=== PATIENT | female | born 1990 | race Caucasian/White ===

== ENCOUNTER 2016-08-17 17:37 | Emergency (ER) | payer MEDICAID ==
[2016-08-17] MEDS ORDERED: BUFFERED LIDOCAINE 10 ML SYRINGE ONE (18:20)
[2016-08-17] MEDS ORDERED: HYDROcod/ACETAM 5/325 MG TABLET PO STA (18:21)
[2016-08-17] MEDS ORDERED: AMOX/CLAV 875 MG/125 MG TABLET PO STA (18:21)
[2016-08-17] MEDS ORDERED: TETANUS/DIPHTHERIA/PERTUSSIS 0.5 ML SYRINGE IM ONE ×2 (18:21→18:55)
[2016-08-17] MEDS ORDERED: HYDROcod/ACETAM 5/325 MG TABLET ONE (18:54)
[2016-08-17] MEDS ORDERED: AMOX/CLAV 875 MG/125 MG TABLET PO ONE (18:56)
== END 2016-08-17 19:43 | disposition home or self-care (01) ==
DX: S61.452A Open bite of left hand, initial encounter (principal); S61.451A Open bite of right hand, initial encounter; W54.0XXA Bitten by dog, initial encounter; Y92.018 Other place in single-family (private) house as the place of occurrence of the external cause; R03.0 Elevated blood-pressure reading, without diagnosis of hypertension; Z23 Encounter for immunization
CPT/HCPCS: 73130; 90471; 90715; 99283; A9270

== ENCOUNTER 2016-08-20 13:41 | Emergency (ER) | payer MEDICAID ==
[2016-08-20] MEDS ORDERED: BUFFERED LIDOCAINE 10 ML SYRINGE ONE (13:45)
== END 2016-08-20 14:13 | disposition home or self-care (01) ==
DX: S61.452D Open bite of left hand, subsequent encounter (principal); S61.451D Open bite of right hand, subsequent encounter; W54.0XXD Bitten by dog, subsequent encounter

== ENCOUNTER 2022-07-20 00:58 | Outpatient (CLI) | payer SELFPAY | END 2022-07-20 00:59 | disposition left against medical advice (07) | LOC: EMS 00:58 | DX: R56.9 Unspecified convulsions (principal) ==

== ENCOUNTER 2022-07-21 10:15 | Emergency (ER) | payer MEDICAID ==
[2022-07-21] MEDS ORDERED: SODIUM CHLORIDE 0.9% 1,000 ML IV STA (11:24)
--- NOTE | 2022-07-21 11:28 | ED Physician Documentation ---
PD HPI SEIZURE - Stated complaint Stated Complaint: SZ - Chief complaint Chief Complaint: Neuro - History obtained from History obtained from: Patient, Family - History of Present Illness Timing - onset: How many days ago (2) Witnessed: Witnessed Number of seizures: Multiple, Recovered between seizure Description of seizure activity: Generalized Injury during seizure: Fell, Other (lip contusion) Associated symptoms: Nausea / vomiting History of seizures: First seizure Contributing factors: Other (has URI) Similar symptoms before: Has not had sx before Recently seen: Not recently seen - Additional information Additional information: Previously well Yady Candelario, is 32 years old and she reports that she had a seizure 2 days ago that was witnessed by her . He indicates that she had flexion-extension with her eyes rolled back and no recollection of the event that lasted 2 to 3 minutes. The patient has had a second seizure and has fallen and hit her face. She does not remember the second seizure the second seizure was not witnessed. The patient does have a history of alcohol consumption and indicates that she had her last drink 1-1/2 weeks ago. I question the patient specifically about the total amount of alcohol she drinks and her last drink. She is making it difficult to make a case for alcohol withdrawal seizure. She has been ill recently with a URI and continues to have a cough. She is not bringing up phlegm. She also has cyclical vomiting which she has had for about the past year and a half. She does not use cannabis. When she has her vomiting it usually last for about 1 day. She has had vomiting associated with this episode as well. She does not have headache. Review of Systems Constitutional: denies: Fever Eyes: denies: Decreased vision Ears: denies: Ear pain Nose: reports: Rhinorrhea / runny nose, Congestion Throat: denies: Sore throat Cardiac: denies: Chest pain / pressure, Palpitations, Pedal edema, Calf pain Respiratory: reports: Dyspnea, Cough GI: reports: Nausea, Vomiting, Diarrhea. denies: Abdominal Pain : denies: Dysuria, Frequency Skin: denies: Rash Musculoskeletal: denies: Neck pain, Back pain, Extremity pain Neurologic: reports: Seizure, Head injury, LOC. denies: Generalized weakness, Focal weakness, Numbness, Difficulty speaking, Confused, Altered mental status, Headache PD PAST MEDICAL HISTORY - Past Medical History Neuro: None - Past Surgical History Past Surgical History: No - Present Medications Home Medications: Ambulatory Orders Medication Instructions Recorded Confirmed Levetiracetam [Keppra] 500 mg PO BID #40 tablet 07/21/22 - Allergies Allergies/Adverse Reactions: Allergies Allergy/AdvReac Type Severity Reaction Status Date / Time No Known Drug Allergies Allergy Verified 08/20/16 13:50 - Social History Does the pt smoke?: No Smoking Status: Never smoker Does the pt drink ETOH?: Yes Does the pt have substance abuse?: No - Immunizations Immunizations are current?: No Immunizations: TDAP >10years/unknown - POLST Patient has POLST: No PD ED PE NORMAL - Vitals Vital signs reviewed: Yes (hypertensive ) - General General: Alert and oriented X 3, No acute distress, Well developed/nourished - HEENT HEENT: PERRL, EOMI, Other (There is swelling to the left lower lip consistent with a contusion. She has a piercing through this. 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, No motor deficit, No sensory deficit, Normal speech Eye Opening: Spontaneous Motor: Obeys Commands Verbal: Oriented GCS Score: 15 - Psych Psych: Normal mood, Normal affect Results - Vitals Vitals: Vital Signs - 24 hr 07/21/22 07/21/22 07/21/22 10:21 12:45 14:47 Temperature 36.4 C L Heart Rate 93 104 H 98 Respiratory 18 20 20 Rate Blood Pressure 124/90 H 127/94 H 122/104 H O2 Saturation 100 94 98 Oxygen O2 Source Room air - Labs Labs: Laboratory Tests 07/21/22 07/21/22 07/21/22 10:49 10:49 12:42 WBC 7.2 RBC 3.95 L Hgb 13.0 Hct 37.4 MCV 94.7 MCH 32.9 H MCHC 34.8 RDW 13.8 Plt Count 216 MPV 9.7 Neut # (Auto) 5.8 Lymph # (Auto) 1.0 L Moffat # (Auto) 0.3 Eos # (Auto) 0.0 Baso # (Auto) 0.0 Absolute Nucleated RBC 0.00 Nucleated RBC % 0.0 Sodium 135 Potassium 2.4 L* Chloride 92 L Carbon Dioxide 29 Anion Gap 14.0 H BUN 5 L Creatinine 0.6 Estimated GFR (MDRD) 117 Glucose 100 Calcium 8.5 Total Bilirubin 2.0 H AST 155 H ALT 85 H Alkaline Phosphatase 99 Total Protein 8.2 Albumin 4.5 Globulin 3.7 Albumin/Globulin Ratio 1.2 Lipase 35 Urine Color DARK YELLOW Urine Clarity CLEAR Urine pH 7.0 Ur Specific [place] <=1.005 Urine Protein NEGATIVE Urine Glucose (UA) NEGATIVE Urine Ketones NEGATIVE Urine Occult Blood TRACE-INTA Urine Nitrite POSITIVE H Urine Bilirubin NEGATIVE Urine Urobilinogen 1 (NORMAL) Ur Leukocyte Esterase SMALL H Urine RBC 0-5 Urine WBC 6-10 H Ur Squamous Epith Cells FEW Squamous Urine Bacteria Many H Ur Microscopic Review INDICATED Urine Culture Comments INDICATED Urine Opiates Screen NEGATIVE Ur Oxycodone Screen NEGATIVE Urine Methadone Screen NEGATIVE Ur Propoxyphene Screen NEGATIVE Ur Barbiturates Screen NEGATIVE Ur Tricyclics Screen NEGATIVE Ur Phencyclidine Scrn NEGATIVE Ur Amphetamine Screen NEGATIVE U Methamphetamines Scrn NEGATIVE U Benzodiazepines Scrn NEGATIVE Urine Cocaine Screen NEGATIVE U Cannabinoids Screen NEGATIVE Ethyl Alcohol < 5.0 - Rads (name of study) CT head Relevant Findings:: Prelim report reviewed (Impression: No CT evidence of acute intracranial process.), EMP independent interpretation of test chest Relevant Findings:: Prelim report reviewed (Impression: No acute cardiopulmonary disease.), EMP independent interpretation of test Procedures - IVC sono (time) 1120 Bedside IVC sono: IVC measures (cm) (0.92), IVC collapsed c insp (cm) (complete), Dehydration (est 1-2 liter deficit) PD Medical Decision Making - ED course Complexity details: reviewed old records, reviewed results, re-evaluated patient, considered differential, d/w patient, d/w family, d/w ux consultant (Dr. Jasso, neurology consultation, recommends treatment with keppra 1000mg loading and then 500bid. Repet seizure unusual recommends follow up with neurology. ) Reviewed Lab Results: We reviewed a complete blood count with normal hemoglobin hematocrit white blood cell count and platelets reviewed chemistries which showed a significantly low potassium at 2.4 it also showed bilirubin elevated at 2.0 and AST and ALT also elevated. Tox screen was negative and ethyl alcohol was less than 5 ED course: 32-year-old female with a report of seizure x2 in 2 days. She does have a history of alcohol consumption and I tried very hard to elicit a history that would make alcohol withdrawal seizure a possibility. The patient indicates that her last alcohol consumption was 10 days ago. I asked the patient's to leave and interrogated the patient further and she is stuck to her story. The patient has had both URI and gastroenteritis with vomiting and diarrhea and she is dehydrated. She was administered intravenous saline. A chest x-ray is obtained without evidence of infiltrate a CT scan of the head was obtained without abnormality. The patient has a family history of factor V Leiden but the patient herself has never been tested. I consulted neurology and spoke to Dr. Whatley.He recommended administration of Keppra 500 twice daily after loading dose of 1000. The patient is agreeing to start this medication and to follow- up. I have given the patient a follow-up with [facility] primary care in [place] as well as with Dr. Mcdaniels neurology at [facility]. Departure - Departure Disposition: 01 Home, Self Care Clinical Impression: Seizure, Dehydration, Gastroenteritis URI (upper respiratory infection) Qualifiers: URI type: unspecified URI Qualified Code(s): J06.9 - Acute upper respiratory infection, unspecified Condition: Stable Instructions: ED Dehydration, ED Seizure New Onset Unk Cause, ED Gastroenteritis Viral Follow-Up: [facility] [place] [Provider Group] Madi Mcdaniels MD [Physician No Access] - Prescriptions: Levetiracetam [Keppra] 500 mg PO BID #40 tablet Comments: Medicine today it looks like you have had 2 seizures and we are not able to pin this down to alcohol withdrawal or some other specific entity. We did find today that you are dehydrated and you have a URI both of which appear to be resolving. The neurologist has recommended beginning Keppra 500 mg twice per day and I have E scribed this to the [facility] in [place]. My recommendation is to follow-up with the clinic in [place] before this medication runs out and to make arrangements for follow-up with neurology. In the meantime seizure precautions are indicated which means no driving no bathing alone no climbing on ladders or standing on roofs. Discharge Date/Time: 07/21/22 15:20
[2022-07-21 11:29] LABS: BASOPHILS % (AUTO) 0.3 %; EOSINOPHILS % (AUTO) 0.4 %; HCT - HEMATOCRIT 37.4 % (37.0-47.0); LYMPHOCYTES % (AUTO) 14.3 %; MEAN CORPUSCULAR HEMOGLOBIN 32.9 pg (27.0-31.0); MEAN CORPUSCULAR HGB CONC 34.8 g/dL (32.0-36.0); MEAN CORPUSCULAR VOLUME 94.7 fL (81.0-99.0); MEAN PLATELET VOLUME 9.7 fL (7.9-10.8); MONOCYTES # (AUTO) 0.3 10^3/uL (0.0-1.0); MONOCYTES % (AUTO) 3.9 %; NEUTROPHILS # (AUTO) 5.8 10^3/uL (1.5-6.6); NEUTROPHILS % (AUTO) 80.8 %; PLT - PLATELET COUNT 216 10^3/uL (130-450); RED BLOOD COUNT 3.95 10^6/uL (4.20-5.40); RED CELL DISTRIBUTION WIDTH 13.8 % (12.0-15.0); WHITE BLOOD COUNT 7.2 x10^3/uL (4.8-10.8)
[2022-07-21 11:42] LABS: ALBUMIN 4.5 g/dL (3.2-5.5); ALBUMIN/GLOBULIN RATIO 1.2 (1.0-2.2); ALKALINE PHOSPHATASE 99 IU/L (42-121); ALT ALANINE AMINOTRANSFERASE 85 IU/L (10-60); AST ASPARTATE AMINOTRANSFERASE 155 IU/L (10-42); BUN - BLOOD UREA NITROGEN 5 mg/dL (6-20); CALCIUM 8.5 mg/dL (8.5-10.3); CARBON DIOXIDE - CO2 29 mmol/L (21-32); CHLORIDE 92 mmol/L (101-111); CREATININE 0.6 mg/dL (0.4-1.0); ETOH - ETHANOL < 5.0 mg/dL; GFR - MDRD 117 (>89); GLUCOSE 100 mg/dL (70-100); LIPASE 35 U/L (22-51); SODIUM 135 mmol/L (135-145); TOTAL PROTEIN 8.2 g/dL (6.7-8.2)
[2022-07-21 11:43] LABS: POTASSIUM 2.4 mmol/L (3.5-5.0)
[2022-07-21] MEDS ORDERED: POTASSIUM CHLORIDE 20 MEQ TABLET PO STA (11:49)
[2022-07-21] MEDS ORDERED: POTASSIUM CHLOR 10 MEQ/100 ML 10 MEQ/100 ML BAG IV ONE (11:49)
[2022-07-21] MEDS ORDERED: MULTIVITAMIN TABLET PO STA (11:50)
[2022-07-21] MEDS ORDERED: THIAMINE INJ 100 MG in SODIUM CHLORIDE 0.9% 50 ML IV STA (11:50)
[2022-07-21] MEDS ORDERED: MAGNESIUM SULFATE 2 GRAM 2 GM/50 ML BAG IV ONE (11:50)
--- NOTE | 2022-07-21 12:02 | CT Report ---
PROCEDURE: HEAD WO INDICATIONS: seizure TECHNIQUE: Noncontrast 4.5 mm thick angled axial sections acquired from the foramen magnum to the vertex. For r adiation dose reduction, the following was used: automated exposure control, adjustment of mA and/or kV according to patient size. COMPARISON: None. FINDINGS: Image quality: Excellent. CSF spaces: Basal cisterns are patent. No extra-axial fluid collections. Ventricles are normal in size and shape. Brain: No midline shift. No intracranial masses or hemorrhage. Louie-white matter interface is norm al. Skull and face: Calvarium and visualized facial bones are intact, without suspicious lesions. Sinuses: Visualized sinuses and mastoids are clear. Hypoplastic frontal sinuses. IMPRESSION: No CT evidence of acute intracranial process. Reviewed by: Eva Gross MD on 07/21/2022 12:00 PM PDT Approved by: Eva Gross MD on 07/21/2022 12:00 PM PDT Station ID: [id number]
--- NOTE | 2022-07-21 12:27 | XRAY Report ---
PROCEDURE: Chest 1 View X-Ray INDICATIONS: cough TECHNIQUE: One view of the chest was acquired. COMPARISON: None. FINDINGS: Surgical changes and devices: None. Lungs and pleura: No pleural effusions or pneumothorax. Lungs are clear. Mediastinum: Mediastinal contours appear normal. Heart size is normal. Bones and chest wall: No suspicious bony lesions. Overlying soft tissues appear unremarkable. IMPRESSION: No acute cardiopulmonary disease. Reviewed by: Eva Gross MD on 07/21/2022 12:25 PM PDT Approved by: Eva Gross MD on 07/21/2022 12:25 PM PDT Station ID: [id number]
[2022-07-21 13:43] LABS: MUDS CUTOFF CONCENTRATIONS CUTOFF CONC BELOW:
[2022-07-21 13:45] LABS: BILIRUBIN,URINE NEGATIVE (NEGATIVE); GLUCOSE, URINE (UA) NEGATIVE (NEGATIVE); KETONES,URINE (UA) NEGATIVE (NEGATIVE); LEUKOCYTE ESTERASE, URINE SMALL (NEGATIVE); NITRITE,URINE POSITIVE (NEGATIVE); OCCULT BLOOD,URINE TRACE-INTA (NEGATIVE); PROTEIN,URINE NEGATIVE (NEGATIVE); UROBILINOGEN,URINE 1 (NORMAL) E.U./dL (NORMAL)
[2022-07-21 13:49] LABS: CLARITY,URINE CLEAR (CLEAR)
[2022-07-21 13:56] LABS: AMPHETAMINE SCREEN,URINE NEGATIVE (NEGATIVE); BACTERIA,URINE Many /HPF (None Seen); BARBITURATE SCREEN,UR NEGATIVE (NEGATIVE); BENZODIAZEPINES SCREEN, URINE NEGATIVE (NEGATIVE); COCAINE SCREEN URINE NEGATIVE (NEGATIVE); METHADONE SCREEN, URINE NEGATIVE (NEGATIVE); METHAMPHETAMINES SCREEN, URINE NEGATIVE (NEGATIVE); OPIATE SCREEN, URINE NEGATIVE (NEGATIVE); OXYCODONE SCREEN, URINE NEGATIVE (NEGATIVE); PROPOXYPHENE SCREEN, URINE NEGATIVE (NEGATIVE); RBC,URINE 0-5 /HPF (0-5); SQUAMOUS EPITHELIAL CELL,UR FEW Squamous (<= Few); THC CANNABINOID SCREEN, URINE NEGATIVE (NEGATIVE); TRICYCLIC ANTIDEPRESSANT,URINE NEGATIVE (NEGATIVE)
[2022-07-21] MEDS ORDERED: levETIRAcetam 500 MG/5 ML VIAL IVP STA (14:09)
[2022-07-21 14:48] VITALS: BP 122/104
== END 2022-07-21 15:20 | disposition home or self-care (01) ==
LOC: ED 10:15
DX: R56.9 Unspecified convulsions (principal); E86.0 Dehydration; K52.9 Noninfective gastroenteritis and colitis, unspecified; J06.9 Acute upper respiratory infection, unspecified
CPT/HCPCS: 36415; 70450; 71045; 80053; 80306; 80320; 81001; 83690; 85025; 87086; 87181; 96361; 96365; 96366; 96368; 96375; 99284; 99285; A9270; J3411; J7040; 81003

== ENCOUNTER 2022-08-24 15:41 | Outpatient (CLI) | payer MEDICAID ==
[~2022-08-24 15:41] MED LIST: GADOBUTROL 7.5 MMOL/7.5 ML VIAL ONE
--- NOTE | 2022-08-24 17:02 | MRI Report ---
PROCEDURE: BRAIN W/WO INDICATIONS: SEIZURES CONTRAST: gadavist 5.4ml TECHNIQUE: Noncontrast axial T1 spin echo, axial T2 fast spin echo, sagittal and axial FLAIR, coronal T2 fast sp in echo, axial gradient echo, axial diffusion and ADC through the brain. After the administration of contrast, axial and coronal T1 spin echo with fat saturation through the brain. COMPARISON: CT head 07/21/2022 FINDINGS: Image quality: Excellent. CSF spaces: Basal cisterns are patent. No extra-axial fluid collections. Ventricles are normal in size and shape. Brain: No midline shift. No intracranial bleeds or masses. No abnormal intracranial enhancement. There is cerebral volume loss for age. There is periventricular white matter chronic small vessel is chemic change. The brainstem appears normal. Diffusion-weighted images demonstrate no acute ischemi c insults. No chronic ischemic insults. Normal intravascular flow voids are present. Hippocampi ar e symmetrical without visualized abnormal signal, enhancement or mass lesion Skull and face: Calvarial marrow is normal in signal. Orbits appear normal. Sinuses: Sinuses and mastoids appear clear. IMPRESSION: 1. No acute intracranial process. Reviewed by: Ludy Lofton MD on 08/24/2022 5:00 PM PDT Approved by: Ludy Lofton MD on 08/24/2022 5:00 PM PDT Station ID: [id number]
[2022-08-24] MEDS ORDERED: GADOBUTROL 7.5 MMOL/7.5 ML VIAL IVP ONE (18:20)
== END 2022-08-24 15:42 | disposition home or self-care (01) ==
LOC: DI 15:41
PROVIDERS: ATTEND Physician Assistant
DX: R56.9 Unspecified convulsions (principal)
CPT/HCPCS: 70553; A9585

== ENCOUNTER 2023-09-30 12:30 | Emergency (ER) | payer MEDICAID ==
[2023-09-30 13:24] LABS: BASOPHILS % (AUTO) 0.1 %; LYMPHOCYTES # (AUTO) 1.9 10^3/uL (1.5-3.5); LYMPHOCYTES % (AUTO) 9.7 %; MEAN CORPUSCULAR HEMOGLOBIN 38.9 pg (27.0-31.0); MEAN CORPUSCULAR HGB CONC 30.1 g/dL (32.0-36.0); MEAN CORPUSCULAR VOLUME 129.2 fL (81.0-99.0); MEAN PLATELET VOLUME 8.9 fL (7.9-10.8); MONOCYTES # (AUTO) 0.9 10^3/uL (0.0-1.0); MONOCYTES % (AUTO) 4.5 %; NEUTROPHILS # (AUTO) 16.2 10^3/uL (1.5-6.6); NEUTROPHILS % (AUTO) 84.4 %; PLT - PLATELET COUNT 121 10^3/uL (130-450); RED BLOOD COUNT 1.13 10^6/uL (4.20-5.40); RED CELL DISTRIBUTION WIDTH 20.4 % (12.0-15.0); WHITE BLOOD COUNT 19.1 x10^3/uL (4.8-10.8)
[2023-09-30 13:26] LABS: HCT - HEMATOCRIT 14.6 % (37.0-47.0); HGB - HEMOGLOBIN 4.4 g/dL (12.0-16.0); SLIDE REVIEW? Indicated
[2023-09-30 13:36] LABS: PARTIAL THROMBOPLASTIN TIME 42.2 secs (24.9-33.3)
[2023-09-30 13:39] LABS: ACETAMINOPHEN 0.8 ug/mL; BILIRUBIN,DIRECT 4.76 mg/dL (0.03-0.18); ETOH - ETHANOL 46.3 mg/dL
[2023-09-30 13:41] LABS: INR 2.8 (0.8-1.2); PT - PROTHROMBIN TIME 28.6 secs (9.9-12.6)
[2023-09-30 13:47] LABS: ALBUMIN 2.5 g/dL (3.2-5.5); ALBUMIN/GLOBULIN RATIO 0.5 (1.0-2.2); BILIRUBIN,TOTAL 12.2 mg/dL (0.2-1.0); CALCIUM 9.5 mg/dL (8.5-10.3); CREATININE 0.5 mg/dL (0.6-1.3); POTASSIUM 3.5 mmol/L (3.5-4.5); TOTAL PROTEIN 7.2 g/dL (6.4-8.9)
--- NOTE | 2023-09-30 13:47 | XRAY Report ---
PROCEDURE: Chest 1V INDICATIONS: dyspnea, hypoxia TECHNIQUE: One view of the chest was acquired. COMPARISON: Chest radiograph 07/21/2022. FINDINGS: Surgical changes and devices: None. Lungs and pleura: Small left pleural effusion. Bilateral multifocal opacities. No pneumothorax. Mediastinum: Mediastinal contours appear normal. Heart size is normal. Bones and chest wall: No suspicious bony lesions. Overlying soft tissues appear unremarkable. IMPRESSION: Bilateral multifocal opacities concerning for pneumonia. Small left pleural effusion. Reviewed by: Eri Durán MD, PhD on 09/30/2023 12:46 PM KEILY Approved by: Eri Durán MD, PhD on 09/30/2023 12:46 PM KEILY Station ID: [id number]
[2023-09-30] MEDS: ALBUTEROL NEB 2.5 MG/3 ML INH STA ×2 (13:48→18:24)
[2023-09-30] MEDS: SODIUM CHLORIDE 0.9% 1,000 ML IV STA ×2 (13:52→20:11)
[2023-09-30 13:55] LABS: PLATELET ESTIMATE, MANUAL DECREASED (<130,000) (NORMAL); PLATELET MORPHOLOGY NORMAL APPEARANCE (NORMAL); WBC MORPHOLOGY (MULTIPLE) NORMAL APPEARANCE (NORMAL)
[2023-09-30] MEDS ORDERED: iohexoL-300 100 ML VIAL ONE (13:55)
[2023-09-30] MEDS: cefTRIAXone 1 GM VIAL IVP STA (13:56)
[2023-09-30 13:57] LABS: MAGNESIUM 1.6 mg/dL (1.7-2.3); PHOSPHORUS 2.8 mg/dL (2.5-5.0)
[2023-09-30 14:19] LABS: B. PARAPERTUSSIS- RESP PCR PAN NOT DETECTED; B. PERTUSSIS- RESP PCR PANEL NOT DETECTED; C. PNEUMONIAE- RESP PCR PANEL NOT DETECTED; CORONAVIRUS 229E-RESP PCR NOT DETECTED; CORONAVIRUS HKU1-RESP PCR NOT DETECTED; CORONAVIRUS NL63-RESP PCR NOT DETECTED; CORONAVIRUS OC43-RESP PCR NOT DETECTED; HUMAN METAPNEUMOVIRUS NOT DETECTED; INFLUENZA A- RESP PCR PANEL NOT DETECTED; INFLUENZA B - RESP PCR PANEL NOT DETECTED; M. PNEUMONIAE- RESP PCR PANEL NOT DETECTED; PARAINFLUENZA VIRUS 1 NOT DETECTED; PARAINFLUENZA VIRUS 2 NOT DETECTED; PARAINFLUENZA VIRUS 3 NOT DETECTED; PARAINFLUENZA VIRUS 4 NOT DETECTED; RHINOVIRUS/ENTEROVIRUS NOT DETECTED; RSV- RESP PCR PANEL NOT DETECTED; SARS-CoV-2 -RESP PCR PANEL NOT DETECTED
--- NOTE | 2023-09-30 14:59 | CT Report ---
PROCEDURE: Chest W INDICATIONS: diffuse infiltrates on cxr CONTRAST: 100ml omni 300 TECHNIQUE: After the administration of intravenous contrast, a CT scan of the chest was performed. Images were recorded and evaluated at appropriate window settings. Reformats: axial MIP of the chest, coronal and sagittal. For radiation dose reduction, the following was used: automated exposure control, adjustme nt of mA and/or kV according to patient size. COMPARISON: Chest radiograph 09/30/2023, 07/21/2022. FINDINGS: Image quality: Degraded by patient motion artifact. Chest wall and lower neck: No thyroid nodule which requires sonographic follow up. No breast mass. No axillary or supraclavicular adenopathy by size. Lungs and pleura: Bilateral multifocal areas of consolidation. Large left and small right pleural eff usions. No pneumothorax. Mediastinum: Heart size is normal. No pericardial effusion. No large vessel abnormality. No mediastin al adenopathy by size criteria. Bones: No aggressive osseous abnormality. Upper Abdomen: Separately dictated. IMPRESSION: Multifocal pneumonia. Large left and small right pleural effusions. Reviewed by: Eri Durán MD, PhD on 09/30/2023 1:58 PM KEILY Approved by: Eri Durán MD, PhD on 09/30/2023 1:58 PM KEILY Station ID: [id number]
--- NOTE | 2023-09-30 15:32 | ED Physician Documentation ---
History of Present Illness - Stated complaint Stated Complaint: SLURRED SPEECH,SOB,YELLOW - Chief complaint Chief Complaint: General - History obtained from History obtained from: Patient, Family - History of Present Illness Pain level max: 3 Pain level now: 3 - Additonal information Additional information: Patient is a 33-year-old female who presents to the emergency department with worsening symptoms for the past few weeks. She has had a cough, edema from her feet all the way up to her abdomen. Increasingly turning yellow. She has had decreased appetite over the past 4 to 5 days. No fevers are reported. 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 The patient states that she has not drank alcohol for 30 days. She denies any drug use. Does take Tylenol, approximately 500 mg daily. She did have elevated liver function test about a year ago with her primary care provider, she states that an ultrasound was ordered but never performed. Review of Systems Constitutional: denies: Fever : denies: Now EGA Skin: denies: Rash PD PAST MEDICAL HISTORY - Past Medical History Past Medical History: Yes Neuro: Seizure disorder Other Past Medical History: chronic nausea - Past Surgical History Past Surgical History: No - Present Medications Home Medications: Ambulatory Orders Medication Instructions Recorded Confirmed Levetiracetam [Keppra] 500 mg PO BID #40 tablet 07/21/22 09/30/23 Ondansetron [Ondansetron Odt] 4 mg PO Q6H 09/30/23 09/30/23 - Allergies Allergies/Adverse Reactions: Allergies Allergy/AdvReac Type Severity Reaction Status Date / Time No Known Drug Allergies Allergy Verified 09/30/23 12:46 - Social History Does the pt smoke?: Yes Smoking Status: Current every day smoker Does the pt drink ETOH?: No Does the pt have substance abuse?: No - Immunizations Immunizations are current?: No Immunizations: TDAP >10years/unknown - POLST Patient has POLST: No PD ED PE NORMAL - Vitals Vital signs reviewed: Yes - General General: Other (pursed lip breathing, jaundiced) - HEENT HEENT: Moist mucous membranes - Neck Neck: Supple, no meningeal sign - Cardiac Cardiac: Other (tachycardic) - Respiratory Respiratory: Other (tachypnea) - Abdomen Abdomen: Soft, Other (distended, soft) - Derm Derm: Warm and dry - Extremities Extremities: Other (generalized anasarca) - Neuro Neuro: Alert and oriented X 3 Results - Vitals Vitals: Vital Signs - 24 hr 09/30/23 09/30/23 09/30/23 12:35 13:00 13:54 Temperature 36.6 C Heart Rate 120 H 67 90 Heart Rate [ monitor] Respiratory 20 21 20 Rate Blood Pressure 121/66 126/88 H Blood Pressure [l arm] O2 Saturation 90 L 91 L If not protocol 10 : Oxygen Flow, liters/minute 09/30/23 09/30/23 09/30/23 14:00 14:21 15:00 Temperature Heart Rate 121 H 123 H 121 H Heart Rate [ monitor] Respiratory 32 H 27 H 31 H Rate Blood Pressure 114/70 136/71 H 119/74 Blood Pressure [l arm] O2 Saturation 86 L 90 L 90 L If not protocol 15 15 : Oxygen Flow, liters/minute 09/30/23 09/30/23 09/30/23 15:30 15:59 16:00 Temperature 36.4 C L Heart Rate 123 H 123 H Heart Rate [ 123 H monitor] Respiratory 31 H 29 H 34 H Rate Blood Pressure 95/69 116/68 Blood Pressure 116/68 [l arm] O2 Saturation 94 88 L 87 L If not protocol 15 15 : Oxygen Flow, liters/minute 09/30/23 09/30/23 09/30/23 16:21 16:30 16:36 Temperature 36.6 C Heart Rate 119 H 100 Heart Rate [ 121 H monitor] Respiratory 30 H 28 H Rate Blood Pressure 120/81 H Blood Pressure 114/96 H [l arm] O2 Saturation 82 L 92 If not protocol 13 : Oxygen Flow, liters/minute 09/30/23 09/30/23 09/30/23 16:50 17:00 17:30 Temperature Heart Rate 118 H 120 H 117 H Heart Rate [ monitor] Respiratory 26 H 28 H 26 H Rate Blood Pressure 118/76 135/88 H 104/69 Blood Pressure [l arm] O2 Saturation 94 92 88 L If not protocol : Oxygen Flow, liters/minute 09/30/23 09/30/23 09/30/23 17:58 18:00 18:19 Temperature 36.5 C 96.9 C H Heart Rate 112 H 112 H Heart Rate [ 119 H 118 H monitor] Respiratory 23 30 H 26 H Rate Blood Pressure 138/105 H Blood Pressure 113/92 H 182/90 H [l arm] O2 Saturation 91 L 89 L 89 L If not protocol : Oxygen Flow, liters/minute 09/30/23 09/30/23 09/30/23 18:30 18:32 18:49 Temperature 36.2 C L Heart Rate 117 H Heart Rate [ 115 H 116 H monitor] Respiratory 27 H 30 H 30 H Rate Blood Pressure 87/76 L Blood Pressure 105/65 99/56 L [l arm] O2 Saturation 87 L 85 L 90 L If not protocol : Oxygen Flow, liters/minute 09/30/23 09/30/23 09/30/23 19:00 19:11 19:21 Temperature Heart Rate 117 H 117 H 117 H Heart Rate [ monitor] Respiratory 32 H 32 H Rate Blood Pressure 99/63 101/54 L Blood Pressure [l arm] O2 Saturation 88 L 90 L If not protocol : Oxygen Flow, liters/minute 09/30/23 09/30/23 09/30/23 20:07 20:13 20:24 Temperature 37 C Heart Rate 115 H 121 H 120 H Heart Rate [ 112 H monitor] Respiratory 28 H 28 H 25 H Rate Blood Pressure 73/41 L 86/51 L 104/66 Blood Pressure 62/41 L [l arm] O2 Saturation 100 92 77 L If not protocol 15 15 : Oxygen Flow, liters/minute 09/30/23 09/30/23 20:35 20:40 Temperature Heart Rate 117 H 122 H Heart Rate [ monitor] Respiratory 30 H 20 Rate Blood Pressure 99/65 Blood Pressure [l arm] O2 Saturation 73 L 85 L If not protocol : Oxygen Flow, liters/minute Oxygen O2 Source Mechanical ventilator - Labs Labs: Microbiology 09/30/23 18:57 Body Fluid Culture - Preliminary Ascities Fluid Laboratory Tests 09/30/23 09/30/23 09/30/23 12:47 13:10 13:17 WBC 19.1 H RBC 1.13 L Hgb 4.4 L* Hct 14.6 L* MCV 129.2 H MCH 38.9 H MCHC 30.1 L RDW 20.4 H Plt Count 121 L MPV 8.9 Neut # (Auto) 16.2 H Lymph # (Auto) 1.9 Preston # (Auto) 0.9 Eos # (Auto) 0.0 Baso # (Auto) 0.0 Absolute Nucleated RBC 0.00 Nucleated RBC % 0.0 Manual Slide Review Indicated WBC Morphology NORMAL APPEARANCE Platelet Estimate DECREASED (<130,000) Platelet Morphology NORMAL APPEARANCE RBC Morph Micro Appear 3+ ANISOCYTOSIS PT INR APTT Bld Gas Analysis Time Sample Site ABG pH ABG pCO2 ABG pO2 ABG HCO3 ABG Total CO2 ABG O2 Saturation ABG Base Excess Misael Test O2 Delivery Device FiO2 EPAP IPAP Sodium Potassium Chloride Carbon Dioxide Anion Gap BUN Creatinine Estimated GFR (MDRD) Glucose POC Whole Bld Glucose Lactic Acid Calcium Phosphorus Magnesium Total Bilirubin Direct Bilirubin AST ALT Alkaline Phosphatase Ammonia Lactate Dehydrogenase Total Protein Albumin Globulin Albumin/Globulin Ratio Lipase Vitamin B12 Folate Urine Color Urine Clarity Urine pH Ur Specific [place] Urine Protein Urine Glucose (UA) Urine Ketones Urine Occult Blood Urine Nitrite Urine Bilirubin Urine Urobilinogen Ur Leukocyte Esterase Urine RBC Urine WBC Ur Squamous Epith Cells Urine Crystals Urine Bacteria Urine Casts Urine Mucus Ur Microscopic Review Urine Culture Comments Urine HCG, Qual Fluid Source Fluid Color Fluid Clarity Fluid WBC Fluid RBC Fluid Neutrophils % Fluid Lymphocytes % Fluid Macrophages % Fld Mesothelial Cell % Nasal Adenovirus (PCR) NOT DETECTED Nasal B. parapertussis DNA (PCR) NOT DETECTED Nasal Coronavir 229E PCR NOT DETECTED Nasal Coronavir HKU1 PCR NOT DETECTED Nasal Coronavir NL63 PCR NOT DETECTED Nasal Coronavir OC43 PCR NOT DETECTED Nasal Enterovir/Rhinovir PCR NOT DETECTED Nasal Influenza B PCR NOT DETECTED Nasal Influenza A PCR NOT DETECTED Nasal Parainfluen 1 PCR NOT DETECTED Nasal Parainfluen 2 PCR NOT DETECTED Nasal Parainfluen 3 PCR NOT DETECTED Nasal Parainfluen 4 PCR NOT DETECTED Nasal RSV (PCR) NOT DETECTED Nasal B.pertussis DNA PCR NOT DETECTED Nasal C.pneumoniae (PCR) NOT DETECTED [place] Human Metapneumo PCR NOT DETECTED Nasal M.pneumoniae (PCR) NOT DETECTED Nasal SARS-CoV-2 (PCR) NOT DETECTED Urine Opiates Screen Ur Buprenorphine Scrn Ur Oxycodone Screen Urine Methadone Screen Acetaminophen Ur Barbiturates Screen Ur Tricyclics Screen Ur Phencyclidine Scrn Ur Amphetamine Screen U Methamphetamines Scrn U Benzodiazepines Scrn Urine Cocaine Screen U Cannabinoids Screen Ur Drug Screen Comment Ethyl Alcohol Blood Type Blood Type Recheck A POSITIVE Antibody Screen REHANA, Polyspecific Crossmatch IS Only 09/30/23 09/30/2309/29/24 13:17 13:17 13:17 WBC RBC Hgb Hct MCV MCH MCHC RDW Plt Count MPV Neut # (Auto) Lymph # (Auto) Preston # (Auto) Eos # (Auto) Baso # (Auto) Absolute Nucleated RBC Nucleated RBC % Manual Slide Review WBC Morphology Platelet Estimate Platelet Morphology RBC Morph Micro Appear PT 28.6 H INR 2.8 H APTT 42.2 H Bld Gas Analysis Time Sample Site ABG pH ABG pCO2 ABG pO2 ABG HCO3 ABG Total CO2 ABG O2 Saturation ABG Base Excess Misael Test O2 Delivery Device FiO2 EPAP IPAP Sodium 128 L Potassium 3.5 Chloride 91 L Carbon Dioxide 13 L Anion Gap 24.0 H BUN 12 Creatinine 0.5 L Estimated GFR (MDRD) 143 Glucose 65 L POC Whole Bld Glucose Lactic Acid Calcium 9.5 Phosphorus Magnesium Total Bilirubin 12.2 H Direct Bilirubin 4.76 H AST 91 H ALT 20 Alkaline Phosphatase 101 Ammonia 16.2 L Lactate Dehydrogenase Total Protein 7.2 Albumin 2.5 L Globulin 4.7 H Albumin/Globulin Ratio 0.5 L Lipase 122 H Vitamin B12 Folate Urine Color Urine Clarity Urine pH Ur Specific [place] Urine Protein Urine Glucose (UA) Urine Ketones Urine Occult Blood Urine Nitrite Urine Bilirubin Urine Urobilinogen Ur Leukocyte Esterase Urine RBC Urine WBC Ur Squamous Epith Cells Urine Crystals Urine Bacteria Urine Casts Urine Mucus Ur Microscopic Review Urine Culture Comments Urine HCG, Qual Fluid Source Fluid Color Fluid Clarity Fluid WBC Fluid RBC Fluid Neutrophils % Fluid Lymphocytes % Fluid Macrophages % Fld Mesothelial Cell % Nasal Adenovirus (PCR) Nasal B. parapertussis DNA (PCR) Nasal Coronavir 229E PCR Nasal Coronavir HKU1 PCR Nasal Coronavir NL63 PCR Nasal Coronavir OC43 PCR Nasal Enterovir/Rhinovir PCR Nasal Influenza B PCR Nasal Influenza A PCR Nasal Parainfluen 1 PCR Nasal Parainfluen 2 PCR Nasal Parainfluen 3 PCR Nasal Parainfluen 4 PCR Nasal RSV (PCR) Nasal B.pertussis DNA PCR Nasal C.pneumoniae (PCR) [place] Human Metapneumo PCR Nasal M.pneumoniae (PCR) Nasal SARS-CoV-2 (PCR) Urine Opiates Screen Ur Buprenorphine Scrn Ur Oxycodone Screen Urine Methadone Screen Acetaminophen 0.8 Ur Barbiturates Screen Ur Tricyclics Screen Ur Phencyclidine Scrn Ur Amphetamine Screen U Methamphetamines Scrn U Benzodiazepines Scrn Urine Cocaine Screen U Cannabinoids Screen Ur Drug Screen Comment Ethyl Alcohol 46.3 Blood Type Blood Type Recheck Antibody Screen REHANA, Polyspecific Crossmatch IS Only 09/30/23 09/30/23 09/30/23 13:17 13:17 13:17 WBC RBC Hgb Hct MCV MCH MCHC RDW Plt Count MPV Neut # (Auto) Lymph # (Auto) Preston # (Auto) Eos # (Auto) Baso # (Auto) Absolute Nucleated RBC Nucleated RBC % Manual Slide Review WBC Morphology Platelet Estimate Platelet Morphology RBC Morph Micro Appear PT INR APTT Bld Gas Analysis Time Sample Site ABG pH ABG pCO2 ABG pO2 ABG HCO3 ABG Total CO2 ABG O2 Saturation ABG Base Excess Misael Test O2 Delivery Device FiO2 EPAP IPAP Sodium Potassium Chloride Carbon Dioxide Anion Gap BUN Creatinine Estimated GFR (MDRD) Glucose POC Whole Bld Glucose Lactic Acid Calcium Phosphorus 2.8 Magnesium 1.6 L Total Bilirubin Direct Bilirubin AST ALT Alkaline Phosphatase Ammonia Lactate Dehydrogenase 200 Total Protein Albumin Globulin Albumin/Globulin Ratio Lipase Vitamin B12 2342 H Folate 3.0 L Urine Color Urine Clarity Urine pH Ur Specific [place] Urine Protein Urine Glucose (UA) Urine Ketones Urine Occult Blood Urine Nitrite Urine Bilirubin Urine Urobilinogen Ur Leukocyte Esterase Urine RBC Urine WBC Ur Squamous Epith Cells Urine Crystals Urine Bacteria Urine Casts Urine Mucus Ur Microscopic Review Urine Culture Comments Urine HCG, Qual Fluid Source Fluid Color Fluid Clarity Fluid WBC Fluid RBC Fluid Neutrophils % Fluid Lymphocytes % Fluid Macrophages % Fld Mesothelial Cell % Nasal Adenovirus (PCR) Nasal B. parapertussis DNA (PCR) Nasal Coronavir 229E PCR Nasal Coronavir HKU1 PCR Nasal Coronavir NL63 PCR Nasal Coronavir OC43 PCR Nasal Enterovir/Rhinovir PCR Nasal Influenza B PCR Nasal Influenza A PCR Nasal Parainfluen 1 PCR Nasal Parainfluen 2 PCR Nasal Parainfluen 3 PCR Nasal Parainfluen 4 PCR Nasal RSV (PCR) Nasal B.pertussis DNA PCR Nasal C.pneumoniae (PCR) [place] Human Metapneumo PCR Nasal M.pneumoniae (PCR) Nasal SARS-CoV-2 (PCR) Urine Opiates Screen Ur Buprenorphine Scrn Ur Oxycodone Screen Urine Methadone Screen Acetaminophen Ur Barbiturates Screen Ur Tricyclics Screen Ur Phencyclidine Scrn Ur Amphetamine Screen U Methamphetamines Scrn U Benzodiazepines Scrn Urine Cocaine Screen U Cannabinoids Screen Ur Drug Screen Comment Ethyl Alcohol Blood Type Blood Type Recheck Antibody Screen REHANA, Polyspecific NEGATIVE Crossmatch IS Only 09/30/23 09/30/23 09/30/23 13:44 14:26 15:40 WBC RBC Hgb Hct MCV MCH MCHC RDW Plt Count MPV Neut # (Auto) Lymph # (Auto) Preston # (Auto) Eos # (Auto) Baso # (Auto) Absolute Nucleated RBC Nucleated RBC % Manual Slide Review WBC Morphology Platelet Estimate Platelet Morphology RBC Morph Micro Appear PT INR APTT Bld Gas Analysis Time Sample Site ABG pH ABG pCO2 ABG pO2 ABG HCO3 ABG Total CO2 ABG O2 Saturation ABG Base Excess Misael Test O2 Delivery Device FiO2 EPAP IPAP Sodium Potassium Chloride Carbon Dioxide Anion Gap BUN Creatinine Estimated GFR (MDRD) Glucose POC Whole Bld Glucose 64 L Lactic Acid 7.2 H* Calcium Phosphorus Magnesium Total Bilirubin Direct Bilirubin AST ALT Alkaline Phosphatase Ammonia Lactate Dehydrogenase Total Protein Albumin Globulin Albumin/Globulin Ratio Lipase Vitamin B12 Folate Urine Color Urine Clarity Urine pH Ur Specific [place] Urine Protein Urine Glucose (UA) Urine Ketones Urine Occult Blood Urine Nitrite Urine Bilirubin Urine Urobilinogen Ur Leukocyte Esterase Urine RBC Urine WBC Ur Squamous Epith Cells Urine Crystals Urine Bacteria Urine Casts Urine Mucus Ur Microscopic Review Urine Culture Comments Urine HCG, Qual Fluid Source Fluid Color Fluid Clarity Fluid WBC Fluid RBC Fluid Neutrophils % Fluid Lymphocytes % Fluid Macrophages % Fld Mesothelial Cell % Nasal Adenovirus (PCR) Nasal B. parapertussis DNA (PCR) Nasal Coronavir 229E PCR Nasal Coronavir HKU1 PCR Nasal Coronavir NL63 PCR Nasal Coronavir OC43 PCR Nasal Enterovir/Rhinovir PCR Nasal Influenza B PCR Nasal Influenza A PCR Nasal Parainfluen 1 PCR Nasal Parainfluen 2 PCR Nasal Parainfluen 3 PCR Nasal Parainfluen 4 PCR Nasal RSV (PCR) Nasal B.pertussis DNA PCR Nasal C.pneumoniae (PCR) [place] Human Metapneumo PCR Nasal M.pneumoniae (PCR) Nasal SARS-CoV-2 (PCR) Urine Opiates Screen Ur Buprenorphine Scrn Ur Oxycodone Screen Urine Methadone Screen Acetaminophen Ur Barbiturates Screen Ur Tricyclics Screen Ur Phencyclidine Scrn Ur Amphetamine Screen U Methamphetamines Scrn U Benzodiazepines Scrn Urine Cocaine Screen U Cannabinoids Screen Ur Drug Screen Comment Ethyl Alcohol Blood Type A POSITIVE Blood Type Recheck Antibody Screen NEGATIVE REHANA, Polyspecific Crossmatch IS Only See Detail 09/30/23 09/30/23 09/30/23 17:09 17:09 17:40 WBC RBC Hgb Hct MCV MCH MCHC RDW Plt Count MPV Neut # (Auto) Lymph # (Auto) Preston # (Auto) Eos # (Auto) Baso # (Auto) Absolute Nucleated RBC Nucleated RBC % Manual Slide Review WBC Morphology Platelet Estimate Platelet Morphology RBC Morph Micro Appear PT INR APTT Bld Gas Analysis Time 1751 Sample Site LEFT RADIAL ABG pH 7.21 L ABG pCO2 37 ABG pO2 67 L ABG HCO3 14.4 L ABG Total CO2 15.5 L ABG O2 Saturation 87 L* ABG Base Excess -12.4 L Misael Test POSITIVE O2 Delivery Device BiPAP FiO2 100.00 EPAP 5 IPAP 10 Sodium Potassium Chloride Carbon Dioxide Anion Gap BUN Creatinine Estimated GFR (MDRD) Glucose POC Whole Bld Glucose Lactic Acid Calcium Phosphorus Magnesium Total Bilirubin Direct Bilirubin AST ALT Alkaline Phosphatase Ammonia Lactate Dehydrogenase Total Protein Albumin Globulin Albumin/Globulin Ratio Lipase Vitamin B12 Folate Urine Color BROWN Urine Clarity HAZY Urine pH 5.5 Ur Specific [place] 1.010 Urine Protein NEGATIVE Urine Glucose (UA) NEGATIVE Urine Ketones 40 H Urine Occult Blood NEGATIVE Urine Nitrite POSITIVE H Urine Bilirubin LARGE H Urine Urobilinogen 4 H Ur Leukocyte Esterase NEGATIVE Urine RBC None Seen Urine WBC 0-3 Ur Squamous Epith Cells FEW Squamous Urine Crystals 3-5 Bilirubin Urine Bacteria Rare Urine Casts 0-2 Hyaline Casts Urine Mucus Few Strands Ur Microscopic Review INDICATED Urine Culture Comments INDICATED Urine HCG, Qual NEGATIVE Fluid Source Fluid Color Fluid Clarity Fluid WBC Fluid RBC Fluid Neutrophils % Fluid Lymphocytes % Fluid Macrophages % Fld Mesothelial Cell % Nasal Adenovirus (PCR) Nasal B. parapertussis DNA (PCR) Nasal Coronavir 229E PCR Nasal Coronavir HKU1 PCR Nasal Coronavir NL63 PCR Nasal Coronavir OC43 PCR Nasal Enterovir/Rhinovir PCR Nasal Influenza B PCR Nasal Influenza A PCR Nasal Parainfluen 1 PCR Nasal Parainfluen 2 PCR Nasal Parainfluen 3 PCR Nasal Parainfluen 4 PCR Nasal RSV (PCR) Nasal B.pertussis DNA PCR Nasal C.pneumoniae (PCR) [place] Human Metapneumo PCR Nasal M.pneumoniae (PCR) Nasal SARS-CoV-2 (PCR) Urine Opiates Screen NEGATIVE Ur Buprenorphine Scrn NEGATIVE Ur Oxycodone Screen NEGATIVE Urine Methadone Screen NEGATIVE Acetaminophen Ur Barbiturates Screen NEGATIVE Ur Tricyclics Screen NEGATIVE Ur Phencyclidine Scrn NEGATIVE Ur Amphetamine Screen NEGATIVE U Methamphetamines Scrn NEGATIVE U Benzodiazepines Scrn NEGATIVE Urine Cocaine Screen NEGATIVE U Cannabinoids Screen NEGATIVE Ur Drug Screen Comment CUTOFF CONC BELOW: Ethyl Alcohol Blood Type Blood Type Recheck Antibody Screen REHANA, Polyspecific Crossmatch IS Only 09/30/23 18:57 WBC RBC Hgb Hct MCV MCH MCHC RDW Plt Count MPV Neut # (Auto) Lymph # (Auto) Preston # (Auto) Eos # (Auto) Baso # (Auto) Absolute Nucleated RBC Nucleated RBC % Manual Slide Review WBC Morphology Platelet Estimate Platelet Morphology RBC Morph Micro Appear PT INR APTT Bld Gas Analysis Time Sample Site ABG pH ABG pCO2 ABG pO2 ABG HCO3 ABG Total CO2 ABG O2 Saturation ABG Base Excess Misael Test O2 Delivery Device FiO2 EPAP IPAP Sodium Potassium Chloride Carbon Dioxide Anion Gap BUN Creatinine Estimated GFR (MDRD) Glucose POC Whole Bld Glucose Lactic Acid Calcium Phosphorus Magnesium Total Bilirubin Direct Bilirubin AST ALT Alkaline Phosphatase Ammonia Lactate Dehydrogenase Total Protein Albumin Globulin Albumin/Globulin Ratio Lipase Vitamin B12 Folate Urine Color Urine Clarity Urine pH Ur Specific [place] Urine Protein Urine Glucose (UA) Urine Ketones Urine Occult Blood Urine Nitrite Urine Bilirubin Urine Urobilinogen Ur Leukocyte Esterase Urine RBC Urine WBC Ur Squamous Epith Cells Urine Crystals Urine Bacteria Urine Casts Urine Mucus Ur Microscopic Review Urine Culture Comments Urine HCG, Qual Fluid Source PERITONEAL Fluid Color YELLOW Fluid Clarity HAZY Fluid WBC 63 Fluid RBC 5000 Fluid Neutrophils % 48 Fluid Lymphocytes % 24 Fluid Macrophages % 20 Fld Mesothelial Cell % 8 Nasal Adenovirus (PCR) Nasal B. parapertussis DNA (PCR) Nasal Coronavir 229E PCR Nasal Coronavir HKU1 PCR Nasal Coronavir NL63 PCR Nasal Coronavir OC43 PCR Nasal Enterovir/Rhinovir PCR Nasal Influenza B PCR Nasal Influenza A PCR Nasal Parainfluen 1 PCR Nasal Parainfluen 2 PCR Nasal Parainfluen 3 PCR Nasal Parainfluen 4 PCR Nasal RSV (PCR) Nasal B.pertussis DNA PCR Nasal C.pneumoniae (PCR) [place] Human Metapneumo PCR Nasal M.pneumoniae (PCR) Nasal SARS-CoV-2 (PCR) Urine Opiates Screen Ur Buprenorphine Scrn Ur Oxycodone Screen Urine Methadone Screen Acetaminophen Ur Barbiturates Screen Ur Tricyclics Screen Ur Phencyclidine Scrn Ur Amphetamine Screen U Methamphetamines Scrn U Benzodiazepines Scrn Urine Cocaine Screen U Cannabinoids Screen Ur Drug Screen Comment Ethyl Alcohol Blood Type Blood Type Recheck Antibody Screen REHANA, Polyspecific Crossmatch IS Only - Rads (name of study) cxr Relevant Findings:: Final report received, See rad report ct chest Relevant Findings:: Final report received, See rad report ct abd/pelvis Relevant Findings:: Final report received, See rad report post intubation cxr Relevant Findings:: Final report received, See rad report post OG tube CXR Relevant Findings:: Final report received, See rad report Procedures - Intubation - Major Provider: Emergency physician Medications: Ketamine, Lidocaine (nebulized) Blade: Glidescope Tube: Size-enter number (7.5), Cuffed, Marked at lips-enter cm (23) Route: Oral Confirmation: Direct visualization, Bilateral breath sounds, End tidal CO2, Pulse ox, Chest xray Complications: No compications - Central Line - Major Central Line Preparation: Consent Obtained, Time out completed, Ultrasound used, Sterile prep and drape Central line location: Right Femoral Central line type: Triple lumen Central line aftercare: Chlorhexidine disc placed, Secured, Placement confirmed, No complications, Pt tolerated well - Paracentesis - Major Preparation: Consent obtained (mother), Ultrasound guidance, Sterile prep and drape, Local anesthesia Location: RLQ Technique: Z-tract, Catheter over needle Fluid: Sent for gram stain, Sent for culture, Sent for glucose, Sent for protein, Sent for LDH Aftercare: No complications, Dressing applied PD Medical Decision Making - ED course Complexity details: reviewed old records (clinic records), reviewed results, re- evaluated patient, considered differential, d/w patient, d/w family (updated mother throughout the ED stay), 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 Has significant hypoxia, down to 65% on room air at triage. Immediately placed on oxygen. She was a very difficult IV stick, IV initially placed a 20-gauge IV in her left antecubital fossa. Her chest x-ray shows diffuse infiltrates, consistent with pneumonia. White blood cell count 19,000. Given Rocephin and azithromycin. Has new onset ascites, abdomen is nontender. Has significant anasarca as well. Her hemoglobin is down to 4.4, type and screen was ordered. Blood was ordered. INR is 2.8. CT abd omen pelvis were attempted to be performed but the line blew during the CT scan, therefore they became noncontrast scans. Initially the patient refused a central line, after much discussion she con tinued to refuse a central line in her internal jugular. She did finally agreed to a central line in the groin. Therefore a femoral line was placed. Patient and mother were both counseled at length regarding infectious risk and that this is not the preferred spot for a central line, but as it was the only line she would allow me to place, I did place a central line in the right femoral area without complication. Calls were placed to surrounding larger facilities for urgent transfer. As of 4 PM, [facility]. Discussed the case with the hospitalist at [facility], Dr. Alvarez, concerned that the patient may need ICU rather than stepdown, they asked if he would try to obtain a hepatology consult from the [facility] as they do not have hepatology on the weekend. I then received a call back from [facility], spoke with Dr. Santos, ICU at [facility] who graciously accepts in transfer. We did discuss a paracentesis, patient does not want a paracentesis at this time. She is clinically stable on BiPAP. Patient continued to worsen in the emergency department before transfer, started to become more hypoxic and grunting. A nebulizer treatment was given along with Solu-Medrol. She became more drowsy. A paracentesis was then performed after consent with mother and 4 L of fluid were removed from the abdomen. Patient still had difficulty raising her oxygen saturations consistently to 90 despite BiPAP with 100% FiO2. At that point it was decided to intubate the patient for airway protection as she was becoming more drowsy as well. Given her lack of reserve, you chose to do a semiawake dissociated intubation. She was given nebulized lidocaine followed by IV ketamine. A glide scope was then used to pass the tube between the cords. There was a large amount of clear yellow fluid in her trachea. Rocuronium was then given as a paralytic as soon as the cords were passed. Patient was started on a Levophed drip as she was hypotensive and placed on a propofol drip for sedation when her systolic blood pressure was up to 100. Patient was then sent via helicopter to [facility]. COBRA forms completed. Prior to the patient leaving, I spoke with Viviana in the ICU at [facility] in [place] to update them on the patient's condition and procedures that had been performed in the emergency department. Later I did speak with Dr. Santos again, to update him on the paracentesis results. EXAM: [id number] CT/ABPEW ([id number]) PROCEDURE: Abdomen/Pelvis W INDICATIONS: jaundice, ascites CONTRAST: 100ml omni 300 TECHNIQUE: After the administration of intravenous contrast, a CT scan of the abdomen and pelvis was performed. Images were recorded and evaluated at appropriate window settings. Reformats: coronal and sagittal. For radiation dose reduction, the following was used: automated exposure control, adjustment of mA and/or kV according to patient size. COMPARISON: CT chest 09/30/2023. FINDINGS: Image quality: Artifact from external monitoring devices and patient motion artifact Lower chest: Please see separately dictated CT chest obtained concurrently same day 09/30/2023. Liver: No solid mass. Gallbladder: Limited evaluation of the gallbladder. Cholelithiasis. Biliary tree: No intrahepatic or extrahepatic dilation, accounting for age. Spleen: No splenomegaly. Pancreas: No pancreatic ductal dilation. Adrenals: No adrenal nodule. Kidneys and ureters: Nonobstructing left inferior pole punctate 4 mm calculus. No hydronephrosis. No renal cystic lesion which requires follow up. No solid mass. Stomach, bowel and peritoneum: No gastric or small bowel dilation. No abnormal wall thickening. Large volume abdominal pelvic ascites. Lymph nodes: No central or retroperitoneal adenopathy. Vessels: No infrarenal aortic aneurysm. Patent portal vein. PELVIS Reproductive organs: Unremarkable. Bladder: No abnormal wall thickening, accounting for underdistention. Pelvic lymph nodes: No pelvic adenopathy by size criteria. Bones: No aggressive osseous abnormality. Other: No significant ventral or inguinal hernia. Anasarca. IMPRESSION: Limited evaluation of the abdomen and pelvis. Large volume abdominopelvic ascites and anasarca. Cholelithiasis without definite evidence of acute cholecystitis. Nonobstructing 4 mm left inferior pole calculus. No hydronephrosis. PROCEDURE: Chest W INDICATIONS: diffuse infiltrates on cxr CONTRAST: 100ml omni 300 TECHNIQUE: After the administration of intravenous contrast, a CT scan of the chest was performed. Images were recorded and evaluated at appropriate window settings. Reformats: axial MIP of the chest, coronal and sagittal. For radiation dose reduction, the following was used: automated exposure control, adjustment of mA and/or kV according to patient size. COMPARISON: Chest radiograph 09/30/2023, 07/21/2022. FINDINGS: Image quality: Degraded by patient motion artifact. Chest wall and lower neck: No thyroid nodule which requires sonographic follow up. No breast mass. No axillary or supraclavicular adenopathy by size. Lungs and pleura: Bilateral multifocal areas of consolidation. Large left and small right pleural effusions. No pneumothorax. Mediastinum: Heart size is normal. No pericardial effusion. No large vessel abnormality. No mediastinal adenopathy by size criteria. Bones: No aggressive osseous abnormality. Upper Abdomen: Separately dictated. IMPRESSION: Multifocal pneumonia. Large left and small right pleural effusions. - Critical Care Time(min): 120 Time Includes: Direct patient care, Review records, Reassess patient, Document care, Coordinate care, See progress note Data interpretation: See progress note Procedures included in critical care time: See progress note Procedures excluded from critical care time: Central IV, Intubation, See progress note (paracentesis) Departure - Departure Disposition: [address] [facility] Clinical Impression: Jaundice, Hyperbilirubinemia, Coagulopathy, Hypoxia, Anasarca Liver failure Qualifiers: Liver failure chronicity: unspecified chronicity Hepatic coma status: without hepatic coma Qualified Code(s): K72.90 - Hepatic failure, unspecified without coma Pneumonia Qualifiers: Pneumonia type: due to unspecified organism Laterality: bilateral Lung location: unspecified part of lung Qualified Code(s): J18.9 - Pneumonia, unspecified organism Anemia Qualifiers: Anemia type: unspecified type Qualified Code(s): D64.9 - Anemia, unspecified Condition: Serious Forms: PCP List Discharge Date/Time: 09/30/23 20:00
[2023-09-30] MEDS: AZITHROMYCIN INJ 500 MG in SODIUM CHLORIDE 0.9% 250 ML IV STA (16:11)
[2023-09-30] MEDS: THIAMINE INJ 100 MG, MAGNESIUM SULFATE 2 GM, MULTIVITAMIN 10 ML, FOLIC ACID INJ 1 MG in... IV STA (16:11)
[2023-09-30] MEDS: ONDANSETRON 4 MG/2 ML VIAL IVP STA (16:36)
[2023-09-30] MEDS: LORazepam 2 MG/ML VIAL IVP STA (16:39)
[2023-09-30] MEDS: PANTOPRAZOLE 40 MG VIAL IVP STA (16:42)
[2023-09-30] MEDS: PHYTONADIONE 10 MG/ML AMP SUBQ STA (16:45)
[2023-09-30 17:25] LABS: BILIRUBIN,URINE LARGE (NEGATIVE); GLUCOSE, URINE (UA) NEGATIVE (NEGATIVE); KETONES,URINE (UA) 40 mg/dL (NEGATIVE); LEUKOCYTE ESTERASE, URINE NEGATIVE (NEGATIVE); NITRITE,URINE POSITIVE (NEGATIVE); OCCULT BLOOD,URINE NEGATIVE (NEGATIVE); PH,URINE 5.5 PH (5.0-7.5); PROTEIN,URINE NEGATIVE (NEGATIVE); UROBILINOGEN,URINE 4 E.U./dL (NORMAL)
[2023-09-30 17:26] LABS: HCG UR QUAL NEGATIVE
[2023-09-30 17:27] LABS: CLARITY,URINE HAZY (CLEAR)
[2023-09-30 17:35] LABS: AMPHETAMINE SCREEN,URINE NEGATIVE (NEGATIVE); BARBITURATE SCREEN,UR NEGATIVE (NEGATIVE); BENZODIAZEPINES SCREEN, URINE NEGATIVE (NEGATIVE); BUPRENORPHINE SCREEN, URINE NEGATIVE (NEGATIVE); COCAINE SCREEN URINE NEGATIVE (NEGATIVE); METHADONE SCREEN, URINE NEGATIVE (NEGATIVE); METHAMPHETAMINES SCREEN, URINE NEGATIVE (NEGATIVE); OPIATE SCREEN, URINE NEGATIVE (NEGATIVE); OXYCODONE SCREEN, URINE NEGATIVE (NEGATIVE); THC CANNABINOID SCREEN, URINE NEGATIVE (NEGATIVE); TRICYCLIC ANTIDEPRESSANT,URINE NEGATIVE (NEGATIVE)
[2023-09-30 17:43] LABS: RBC,URINE None Seen /HPF (0-5); SQUAMOUS EPITHELIAL CELL,UR FEW Squamous (<= Few); WBC,URINE 0-3 /HPF (0-5)
[2023-09-30 17:44] LABS: BACTERIA,URINE Rare /HPF (None Seen); CASTS, URINE 0-2 Hyaline Casts /LPF; CRYSTALS,URINE 3-5 Bilirubin /LPF; MUCUS,URINE Few Strands
[2023-09-30 17:52] LABS: ABG BASE EXCESS -12.4 mmol/L (-2.0-3.0); ABG HCO3 14.4 mmol/L (22.0-26.0); ABG PCO2 37 mmHg (34-45); ABG PH 7.21 (7.35-7.45); ABG PO2 67 mmHg (80-100); ABG TCO2 15.5 MMOL/L (21.0-29.0)
[2023-09-30 17:54] LABS: ABG OXYGEN SATURATION 87 % (94-98); ALLEN TEST POSITIVE
[2023-09-30] MEDS: IPRATROPIUM/ALBUTEROL 3 ML NEB INH STA (17:57)
[2023-09-30] MEDS: iohexoL-300 100 ML VIAL IVP ONE (18:07)
[2023-09-30] MEDS ORDERED: ALBUTEROL NEB 2.5 MG/3 ML INH ONE (18:15)
[2023-09-30] MEDS: MORPHINE 2 MG/ML CARPUJECT IVP STA (18:40)
[2023-09-30] MEDS: methylPREDNISolone SUCCINATE 125 MG/2 ML VIAL IVP STA (18:43)
[2023-09-30] MEDS: ALBUTEROL SULF 0.5% 20ML SOLUTION INH SCH (19:30)
[2023-09-30 19:45] LABS: CC,BF RBC 5000 /mm^3; CC,BF WBC 63 /mm^3
[2023-09-30] MEDS ORDERED: LIDOCAINE TOPICAL 4% 50 ML BOTTLE ONE (19:45)
[2023-09-30] MEDS ORDERED: NOREPINEPHRINE/0.9 % NS 8 MG/250 ML BAG IV ONE (19:46)
[2023-09-30 19:47] LABS: BF CLARITY HAZY; BF COLOR YELLOW; BF SOURCE PERITONEAL
[2023-09-30] MEDS: LIDOCAINE TOPICAL 4% 50 ML BOTTLE MM STA (19:49)
[2023-09-30] MEDS: KETAMINE 500 MG/10 ML VIAL IVP STA (19:56)
[2023-09-30] MEDS: ROCURONIUM 50 MG/5 ML VIAL IVP STA (20:04)
[2023-09-30] MEDS: NOREPINEPHRINE/0.9 % NS 8 MG/250 ML BAG IV STA (20:11)
[2023-09-30] MEDS: PROPOFOL 1000 MG/100 ML 1,000 MG/100 ML BOTTLE IV STA (20:18)
[2023-09-30 20:30] LABS: LYMPHOCYTES %,BODY FLUID 24 %; MACROPHAGES %,BODY FLUID 20 %; MESOTHELIAL %, BF 8 %; NEUTROPHILS %, BF 48 %
--- NOTE | 2023-09-30 20:40 | XRAY Report ---
PROCEDURE: Chest for Line Placement INDICATIONS: intubation TECHNIQUE: One view of the chest was acquired. COMPARISON: 09/30/2023 FINDINGS: Surgical changes and devices: Endotracheal tube tip 3.2 cm above the ayo Lungs and pleura: Dense bilateral perihilar infiltrates with relative peripheral clearing left Mediastinum: Mediastinal contours appear normal. Heart size is normal. Bones and chest wall: No suspicious bony lesions. Overlying soft tissues appear unremarkable. IMPRESSION: Endotracheal tube tip 3.2 cm above the ayo. Dense bilateral perihilar infiltrates have significantly increased from the prior exam, and most cons istent with pulmonary edema. Differential rapidly progressive pneumonia Reviewed by: Noah Antoine MD on 09/30/2023 7:39 PM AKDT Approved by: Noah Antoine MD on 09/30/2023 7:39 PM AKDT Station ID: [id number]
--- NOTE | 2023-09-30 20:52 | XRAY Report ---
PROCEDURE: Chest for Line Placement INDICATIONS: ng tube TECHNIQUE: One view of the chest was acquired. COMPARISON: 09/30/2023 FINDINGS: Surgical changes and devices: Nasogastric tube in the stomach. Endotracheal tube tip unchanged. Lungs and pleura: Dense bilateral perihilar pulmonary infiltrates Mediastinum: Mediastinal contours appear normal. Heart size is normal. Bones and chest wall: No suspicious bony lesions. Overlying soft tissues appear unremarkable. IMPRESSION: Nasogastric tube in the stomach. Endotracheal tube unchanged. Stable dense perihilar infiltrates Reviewed by: Noah Antoine MD on 09/30/2023 7:50 PM AKDT Approved by: Noah Antoine MD on 09/30/2023 7:50 PM AKDT Station ID: [id number]
[2023-09-30 20:57] VITALS: BP 99/65; O2SAT 85
[2023-10-03 12:10] LABS: HBsAG SCREEN Negative (Negative); HCV AB Non Reactive (Non Reactive); HEPATITIS B CORE IGM AB Negative (Negative)
== END 2023-09-30 20:00 | disposition short-term general hospital (02) ==
LOC: ED 12:30
DX: K72.90 Hepatic failure, unspecified without coma (principal); J18.9 Pneumonia, unspecified organism; R60.1 Generalized edema; E80.6 Other disorders of bilirubin metabolism; D68.9 Coagulation defect, unspecified; F17.200 Nicotine dependence, unspecified, uncomplicated; D64.9 Anemia, unspecified
CPT/HCPCS: 31500; 36415; 36430; 36556; 36600; 49082; 51702; 71045; 71260; 74177; 80053; 80074; 80143; 80306; 81001; 81025; 82077; 82140; 82248; 82607; 82746; 82803; 83605; 83615; 83690; 83735; 84100; 84157; 85025; 85610; 85730; 86850; 86880; 86900; 86901; 86920; 87040; 87070; 87086; 87205; 87633; 89051; 94640; 94660; 96365; 96366; 96368; 96372; 96375; 99291; 99292; J2060; J3411; J7609; P9016; Q9967; 81003